=== PATIENT | male | born 1995 | race Caucasian/White ===

== ENCOUNTER 2019-07-21 20:59 | Emergency (ER) | payer BC, OTHER ==
[~2019-07-21] VITALS: Ht 182.9 cm; Wt 77.1 kg
[2019-07-21 23:06] LABS: BASOPHILS 1.2 % (0.0-2.0); EOSINOPHILS 3.2 % (0.0-3.0); HEMATOCRIT 47.5 % (42.0-52.0); HEMOGLOBIN 16.1 gm/dL (14.0-18.0); LYMPHOCYTES 32.5 % (24.0-44.0); MCH 28.1 pg (26.0-34.0); MCHC 33.9 g/dL (28.0-37.0); MCV 83.1 fL (80.0-100.0); MONOCYTES 7.3 % (1.0-8.0); PLATELET COUNT 322 thou/uL (150-400); POLYS 55.8 % (36.0-66.0); RBC 5.73 mil/uL (4.50-6.00); RDW 12.9 % (10.5-14.5); WBC 8.9 thou/uL (4.0-11.0)
[2019-07-21 23:15] LABS: ANION GAP 7 mmol/L (7-16); BUN 13 mg/dL (7-18); CALCIUM 9.6 mg/dL (8.5-10.1); CHLORIDE 102 mmol/L (98-107); CO2 26 mmol/L (21-32); CREATININE 1.1 mg/dL (0.7-1.3); GLUCOSE 95 mg/dL (74-106); POTASSIUM 3.8 mmol/L (3.5-5.1); SODIUM 135 mmol/L (136-145)
[2019-07-21 23:24] LABS: TROPONIN-I <0.06 ng/mL (<0.06)
[2019-07-21] MEDS ORDERED: OMEPRAZOLE40 MG PO (23:24)
[2019-07-21] MEDS ORDERED: TRAZODONE HCL50 MG PO (23:24)
[2019-07-21 23:58] VITALS: BP 138/97
[2019-07-22] MEDS ORDERED: CARAFATE1 GM PO (00:03)
--- NOTE | 2019-07-22 08:33 | EKG ---
[address] [place] [address] [facility] [place] [address] ELECTROCARDIOGRAM REPORT Name: FREDO MEIER Room #: DEP CRAIG Orr#: [id number] Admission: 07/21/19 Attend Phys: Discharge: 07/22/19 Date of : [birth year] Report #: [id number] THIS REPORT FOR: //name// [facility] ED Test Date: 2019-07-21 Test Time: 21:36:34 Pat Name: FREDO MEIER Department: Room: Gender: M [employer]: : 1995 Requested By: Daiana Hwang Order Number: [id number] MD: Xavi Christiansen Measurements Intervals [place] Rate: 55 P: 10 WV: 133 QRS: 13 QRSD: 97 T: 8 QT: 398 QTc: 381 Interpretive Statements Sinus bradycardia Otherwise normal tracing No previous ECG available for comparison Electronically Signed On 07-22-2019 8:33:25 HIM ASSISTANT by Xavi Christiansen [email or web address] <ELECTRONICALLY SIGNED> By: Xavi Christiansen MD, [facility] 07/22/19 0833 [id number] Xavi Christiansen MD, FACC /EPI
== END 2019-07-22 00:20 | disposition home or self-care (01) ==
LOC: ER 20:59
PROVIDERS: Emergency Medicine
DX: R07.89 Other chest pain (principal)